=== PATIENT | male | born 1965 ===

== ENCOUNTER 2020-07-08 07:44 | Day surgery (SDC) | payer BC ==
[~2020-07-08] VITALS: Ht 177.8 cm; Wt 108.3 kg
[2020-07-08] MEDS ORDERED: LISI20 PO (08:20)
--- NOTE | 2020-07-08 09:10 | NUR ---
07/08/20 0910 JERONIMO MORALES LATE ENTRY- DR BECKHAM PERFORMED NERVE BLOCK WITH 10ML OF 2% LIDOCAINE WITH EPI 1:100,000 INJECTED INTO LWRIST/HAND. PTS VITALS REMAINED STABLE THROUGHOUT BLOCK PROCEDURE. PT TOLERATED WELL.
== END 2020-07-08 12:20 | disposition home or self-care (01) ==
LOC: ORSCSDS 07:44
PROVIDERS: Orthopaedic Surgery
PROC: 0RQT0ZZ Repair Left Carpometacarpal Joint, Open Approach (ICD-10-PCS; principal; 2020-07-08 09:00)
PROC: 0LX80ZZ Transfer Left Hand Tendon, Open Approach (ICD-10-PCS; principal; 2020-07-08 09:00)
DX: M18.12 Unilateral primary osteoarthritis of first carpometacarpal joint, left hand (principal); I10 Essential (primary) hypertension; Z79.82 Long term (current) use of aspirin; Z79.899 Other long term (current) drug therapy
CPT/HCPCS: C1713; J0690; J1100; J2250; J2405; J2704; J3010; J7120